=== PATIENT | male | born 1965 | race Caucasian/White ===

== ENCOUNTER 2019-04-22 17:59 | Emergency (ER) | payer MEDICAID ==
[~2019-04-22] VITALS: Ht 165.1 cm; Wt 85.3 kg
[2019-04-22 18:04] VITALS: Ht 165.1 cm; Wt 85.3 kg
[2019-04-22 21:58] VITALS: BP 116/75
== END 2019-04-22 21:58 | disposition home or self-care (01) ==
LOC: ED 17:59
DX: S80.02XA Contusion of left knee, initial encounter (principal); W18.30XA Fall on same level, unspecified, initial encounter; Y93.89 Activity, other specified; Y92.89 Other specified places as the place of occurrence of the external cause; Y99.8 Other external cause status
CPT/HCPCS: Q0092